=== PATIENT | female | born 1950 | race Caucasian/White ===

== ENCOUNTER 2020-09-22 22:52 | Inpatient (IN) | payer OTHER ==
[2020-09-23 01:19] LABS: VENOUS BASE EXCESS 2.9 mmol/L (-2-2); VENOUS O2 SATURATION 40.9 % (70-80); VENOUS PCO2 49.9 mmHg (38-52); VENOUS PH 7.381 (7.310-7.410)
[2020-09-23 01:20] LABS: BASO % 0.5 % (0-2.0); EOS % 1.8 % (0-4.5); HEMATOCRIT 36.8 % (32.4-45.2); HEMOGLOBIN 12.3 GM/dL (10.7-15.3); LYMPH % 45.1 % (8-40); MCH 29.8 pg (25.7-33.7); MCHC 33.5 g/dl (32.0-36.0); MEAN PLT VOLUME 8.3 fl (7.5-11.1); MONO % 10.8 % (3.8-10.2); NEUT % 41.8 % (42.8-82.8); PLATELET COUNT 297 10^3/uL (134-434); RBC 4.14 M/mm3 (3.60-5.2); RDW 15.3 % (11.6-15.6); WHITE BLOOD COUNT 4.9 K/mm3 (4.0-10.0)
[2020-09-23 01:22] LABS: EPI CELLS >36 /uL (0-25.1); HYALINE CASTS 26 /uL (0-3.1); PH,URINE 5.5 (5.0-8.0); URINE APPEARANCE TURBID; URINE BACTERIA 1869 /uL (0-1359); URINE BILIRUBIN 2+ (NEGATIVE); URINE COLOR DK YELLOW; URINE GLUCOSE (UA) NEGATIVE (NEGATIVE); URINE KETONE TRACE (NEGATIVE); URINE LEUK ESTERASE 2+ (NEGATIVE); URINE NITRITE NEGATIVE (NEGATIVE); URINE PROTEIN 1+ (NEGATIVE); URINE RBC 17 /uL (0-23.9); URINE WBC 487 /uL (0-25.8)
[2020-09-23 01:31] LABS: INR 1.1 (0.83-1.09); PROTHROMBIN TIME (PATIENT) 13.5 SEC (9.7-13.0)
[2020-09-23] MEDS ORDERED: CEFTRIAXONE 1 GM in DEXTROSE 5%-WATER - 100 ML IVPB ONE (01:32)
[2020-09-23 01:33] LABS: ACTIVATED PTT 30.5 SECONDS (25.2-36.5)
[2020-09-23 01:45] LABS: CHLORIDE 107 mmol/L (98-107); SODIUM 144 mmol/L (136-145)
[2020-09-23 01:47] LABS: ALBUMIN 3.7 g/dl (3.4-5.0); ANION GAP 8 MMOL/L (8-16); BLOOD UREA NITROGEN 16.5 mg/dL (7-18); CALCIUM 9.5 mg/dL (8.5-10.1); CO2 28 mmol/L (21-32)
[2020-09-23] MEDS ORDERED: CEFTRIAXONE 1 GM/50 ML BAG ONE (01:50)
[2020-09-23 01:51] LABS: CREATININE 0.8 mg/dL (0.55-1.3); SGOT/AST 18 U/L (15-37); SGPT/ALT 15 U/L (13-61)
[2020-09-23 01:53] LABS: BILIRUBIN,TOTAL 0.4 mg/dL (0.2-1); TOT PROT 6.8 g/dl (6.4-8.2)
[2020-09-23 01:54] LABS: ALK PHOS 47 U/L (45-117)
[2020-09-23 01:59] LABS: GLUCOSE,RANDOM 86 mg/dL (74-106)
[2020-09-23] MEDS ORDERED: DOCUSATE SODIUM 100 MG CAPSULE (FP) PO PRN (04:44)
[2020-09-23] MEDS: INSULIN SLIDING SCALE (NOVOLOG) 1 VIAL SQ SCH ×4 (06:32→22:25)
[2020-09-23 06:52] LABS: HEMATOCRIT 31.2 % (32.4-45.2); HEMOGLOBIN 10.8 GM/dL (10.7-15.3); MCH 30.8 pg (25.7-33.7); MCHC 34.8 g/dl (32.0-36.0); MEAN CELL VOLUME 88.5 fl (80-96); PLATELET COUNT 252 10^3/uL (134-434); RBC 3.52 M/mm3 (3.60-5.2); RDW 15.3 % (11.6-15.6)
[2020-09-23 07:08] LABS: ALBUMIN 3.2 g/dl (3.4-5.0); CALCIUM 8.7 mg/dL (8.5-10.1); MAGNESIUM 1.6 mg/dL (1.8-2.4)
[2020-09-23 07:11] LABS: TOT PROT 5.8 g/dl (6.4-8.2)
[2020-09-23 07:12] LABS: BILIRUBIN,TOTAL 0.3 mg/dL (0.2-1); CREATININE 0.7 mg/dL (0.55-1.3); PHOSPHOROUS 3.9 mg/dL (2.5-4.9)
[2020-09-23] MEDS ORDERED: PANTOPRAZOLE 20 MG TABLET PO ONE (08:31)
[2020-09-23] MEDS ORDERED: sitaGLIPtin PHOSPHATE 50 MG TABLET ONE ×2 (08:33→17:27)
[2020-09-23] MEDS ORDERED: metFORMIN HCL 500 MG TABLET (FP) ONE ×2 (08:33→17:27)
[2020-09-23] MEDS ORDERED: CLOPIDOGREL BISULFATE 75 MG TABLET (FP) ONE (08:33)
[2020-09-23] MEDS ORDERED: ENOXAPARIN NA (PORCINE) 40 MG/0.4 ML DISP.SYRIN SQ ONE (08:34)
[2020-09-23] MEDS: sitaGLIPtin PHOSPHATE 50 MG TABLET PO SCH ×2 (08:55→17:49)
[2020-09-23] MEDS: metFORMIN HCL 500 MG TABLET (FP) PO SCH ×2 (08:55→17:49)
[2020-09-23] MEDS ORDERED: POTASSIUM CHLORIDE ORAL LIQUID 20 MEQ/15 ML PO ONE (09:07)
[2020-09-23] MEDS ORDERED: KCL 10 MEQ IVPB 10 MEQ/100 ML INFUS.BAG IVPB ONE ×2 (09:08→12:23)
[2020-09-23] MEDS ORDERED: MAGNESIUM OXIDE 400 MG TABLET (FP) PO ONE (09:10)
[2020-09-23] MEDS: KCL 10 MEQ IVPB 10 MEQ/100 ML INFUS.BAG IVPB SCH ×3 (09:30→15:58)
[2020-09-23] MEDS: PANTOPRAZOLE 20 MG TABLET PO SCH (09:48)
[2020-09-23] MEDS: CLOPIDOGREL BISULFATE 75 MG TABLET (FP) PO SCH (09:48)
[2020-09-23] MEDS: ENOXAPARIN NA (PORCINE) 40 MG/0.4 ML DISP.SYRIN SQ SCH (09:48)
[2020-09-23] MEDS ORDERED: POTASSIUM CHLORIDE ORAL LIQUID 20 MEQ/15 ML ONE (09:53)
[2020-09-23] MEDS ORDERED: MAGNESIUM OXIDE 400 MG TABLET (FP) ONE (09:53)
[2020-09-23] MEDS ORDERED: PATIENT'S OWN MEDICATION (NON-FORMULARY) (Sitagliptin Phos/Metformin Hcl [Janumet 50-1,000 PO SCH (10:00)
[2020-09-23] MEDS ORDERED: LORazepam 2 MG/ML SDV VIAL IVPUSH ONE (17:47)
[2020-09-23] MEDS ORDERED: LORazepam 2 MG/ML SDV VIAL ONE (18:29)
[2020-09-23] MEDS ORDERED: risperiDONE 0.5 MG TABLET ONE (22:15)
[2020-09-23] MEDS ORDERED: QUEtiapine FUMARATE 25 MG TABLET ONE (22:15)
[2020-09-23] MEDS ORDERED: ATORVASTATIN CA 10 MG TABLET (FP) ONE (22:15)
[2020-09-23] MEDS: ATORVASTATIN CA 10 MG TABLET (FP) PO SCH (22:16)
[2020-09-23] MEDS: QUEtiapine FUMARATE 25 MG TABLET PO SCH (22:16)
[2020-09-23] MEDS: risperiDONE 1 MG TABLET PO SCH (22:16)
[2020-09-24] MEDS: INSULIN SLIDING SCALE (NOVOLOG) 1 VIAL SQ SCH ×4 (06:02→21:26)
[2020-09-24 07:14] LABS: BASO % 0.7 % (0-2.0); EOS % 2.4 % (0-4.5); HEMATOCRIT 32.6 % (32.4-45.2); LYMPH % 51.4 % (8-40); MCH 30.2 pg (25.7-33.7); MCHC 33.7 g/dl (32.0-36.0); MEAN CELL VOLUME 89.9 fl (80-96); MEAN PLT VOLUME 8.3 fl (7.5-11.1); MONO % 9.6 % (3.8-10.2); NEUT % 35.9 % (42.8-82.8); PLATELET COUNT 245 10^3/uL (134-434); RBC 3.63 M/mm3 (3.60-5.2); RDW 15.2 % (11.6-15.6); WHITE BLOOD COUNT 3.8 K/mm3 (4.0-10.0)
[2020-09-24 07:38] LABS: CALCIUM 8.6 mg/dL (8.5-10.1)
[2020-09-24 07:39] LABS: ALBUMIN 2.8 g/dl (3.4-5.0); BLOOD UREA NITROGEN 12.2 mg/dL (7-18); MAGNESIUM 1.5 mg/dL (1.8-2.4)
[2020-09-24 07:41] LABS: CREATININE 0.6 mg/dL (0.55-1.3)
[2020-09-24 07:43] LABS: BILIRUBIN,TOTAL 0.4 mg/dL (0.2-1); TOT PROT 5.5 g/dl (6.4-8.2)
[2020-09-24] MEDS ORDERED: MAGNESIUM SULF 50% (8.12 MEQ/2 ML-1 GM VIAL) IVPB ONE (07:58)
[2020-09-24] MEDS ORDERED: PANTOPRAZOLE 20 MG TABLET PO ONE (09:42)
[2020-09-24] MEDS ORDERED: CEFTRIAXONE 1 GM/50 ML BAG ONE (09:42)
[2020-09-24] MEDS ORDERED: ENOXAPARIN NA (PORCINE) 40 MG/0.4 ML DISP.SYRIN SQ ONE (09:42)
[2020-09-24] MEDS ORDERED: CLOPIDOGREL BISULFATE 75 MG TABLET (FP) ONE (09:42)
[2020-09-24] MEDS ORDERED: MAGNESIUM 1GM/D5W - 1 GM/100 ML IVPB IVPB ONE (09:43)
[2020-09-24] MEDS ORDERED: CEFTRIAXONE 1 GM in DEXTROSE 5%-WATER - 50 ML IVPB SCH (10:00)
[2020-09-24] MEDS: ENOXAPARIN NA (PORCINE) 40 MG/0.4 ML DISP.SYRIN SQ SCH (10:56)
[2020-09-24] MEDS: PANTOPRAZOLE 20 MG TABLET PO SCH (11:54)
[2020-09-24] MEDS: CLOPIDOGREL BISULFATE 75 MG TABLET (FP) PO SCH (11:54)
[2020-09-24] MEDS: risperiDONE 1 MG TABLET PO SCH ×2 (11:54→21:12)
[2020-09-24] MEDS ORDERED: MAGNESIUM OXIDE 400 MG TABLET (FP) PO ONE (12:28)
[2020-09-24 17:29] VITALS: BMI 25.7
[2020-09-24] MEDS: QUEtiapine FUMARATE 25 MG TABLET PO SCH (21:12)
[2020-09-24] MEDS: ATORVASTATIN CA 10 MG TABLET (FP) PO SCH (21:12)
[2020-09-25] MEDS: INSULIN SLIDING SCALE (NOVOLOG) 1 VIAL SQ SCH ×4 (06:13→21:11)
[2020-09-25] MEDS: ENOXAPARIN NA (PORCINE) 40 MG/0.4 ML DISP.SYRIN SQ SCH (09:12)
[2020-09-25] MEDS: CEFUROXIME AXETIL 500 MG TABLET PO SCH ×2 (09:12→21:09)
[2020-09-25] MEDS: risperiDONE 1 MG TABLET PO SCH ×2 (09:13→21:09)
[2020-09-25] MEDS: CLOPIDOGREL BISULFATE 75 MG TABLET (FP) PO SCH (09:13)
[2020-09-25] MEDS: PANTOPRAZOLE 20 MG TABLET PO SCH (09:13)
[2020-09-25 10:21] LABS: BASO % 0.7 % (0-2.0); EOS % 2.4 % (0-4.5); HEMATOCRIT 32.9 % (32.4-45.2); HEMOGLOBIN 11.1 GM/dL (10.7-15.3); LYMPH % 37.7 % (8-40); MCH 29.7 pg (25.7-33.7); MCHC 33.6 g/dl (32.0-36.0); MEAN CELL VOLUME 88.3 fl (80-96); MEAN PLT VOLUME 8.3 fl (7.5-11.1); MONO % 8.3 % (3.8-10.2); NEUT % 50.9 % (42.8-82.8); PLATELET COUNT 279 10^3/uL (134-434); RBC 3.73 M/mm3 (3.60-5.2); RDW 14.7 % (11.6-15.6); WHITE BLOOD COUNT 3.1 K/mm3 (4.0-10.0)
[2020-09-25 10:27] LABS: BLOOD UREA NITROGEN 10.6 mg/dL (7-18); CALCIUM 8.7 mg/dL (8.5-10.1); MAGNESIUM 1.6 mg/dL (1.8-2.4)
[2020-09-25 10:29] LABS: CREATININE 0.6 mg/dL (0.55-1.3)
[2020-09-25 10:30] LABS: BILIRUBIN,TOTAL 0.4 mg/dL (0.2-1); TOT PROT 5.6 g/dl (6.4-8.2)
[2020-09-25] MEDS: MEMANTINE HCL 5 MG TABLET (UD) PO SCH ×2 (14:14→21:09)
[2020-09-25] MEDS ORDERED: MAGNESIUM OXIDE 400 MG TABLET (FP) PO ONE (15:43)
[2020-09-25] MEDS ORDERED: PT OWN MED DRAWER 7, Y5N ONE (20:18)
[2020-09-25] MEDS: ATORVASTATIN CA 10 MG TABLET (FP) PO SCH (21:09)
[2020-09-25] MEDS: QUEtiapine FUMARATE 25 MG TABLET PO SCH (21:09)
[2020-09-26] MEDS: INSULIN SLIDING SCALE (NOVOLOG) 1 VIAL SQ SCH ×4 (06:08→21:03)
[2020-09-26] MEDS ORDERED: PT OWN MED DRAWER 7, Y5N ONE (10:13)
[2020-09-26] MEDS: ENOXAPARIN NA (PORCINE) 40 MG/0.4 ML DISP.SYRIN SQ SCH (10:20)
[2020-09-26] MEDS: PANTOPRAZOLE 20 MG TABLET PO SCH (10:20)
[2020-09-26] MEDS: risperiDONE 1 MG TABLET PO SCH ×2 (10:20→21:01)
[2020-09-26] MEDS: MEMANTINE HCL 5 MG TABLET (UD) PO SCH ×2 (10:20→21:01)
[2020-09-26] MEDS: CEFUROXIME AXETIL 500 MG TABLET PO SCH ×2 (10:20→21:00)
[2020-09-26] MEDS: CLOPIDOGREL BISULFATE 75 MG TABLET (FP) PO SCH (10:20)
[2020-09-26] MEDS: QUEtiapine FUMARATE 25 MG TABLET PO SCH (21:01)
[2020-09-26] MEDS: ATORVASTATIN CA 10 MG TABLET (FP) PO SCH (21:01)
[2020-09-27] MEDS: INSULIN SLIDING SCALE (NOVOLOG) 1 VIAL SQ SCH ×4 (06:40→21:13)
[2020-09-27 08:19] LABS: BASO % 0.7 % (0-2.0); EOS % 2.4 % (0-4.5); HEMATOCRIT 32.2 % (32.4-45.2); LYMPH % 44.7 % (8-40); MCHC 34.1 g/dl (32.0-36.0); MEAN CELL VOLUME 87.9 fl (80-96); MONO % 7.7 % (3.8-10.2); NEUT % 44.5 % (42.8-82.8); PLATELET COUNT 248 10^3/uL (134-434); RBC 3.66 M/mm3 (3.60-5.2); RDW 15.1 % (11.6-15.6); WHITE BLOOD COUNT 3.4 K/mm3 (4.0-10.0)
[2020-09-27 08:42] LABS: CALCIUM 8.4 mg/dL (8.5-10.1)
[2020-09-27 08:43] LABS: ALBUMIN 2.8 g/dl (3.4-5.0); BLOOD UREA NITROGEN 10.6 mg/dL (7-18); MAGNESIUM 1.7 mg/dL (1.8-2.4)
[2020-09-27 08:45] LABS: CREATININE 0.6 mg/dL (0.55-1.3)
[2020-09-27 08:46] LABS: BILIRUBIN,TOTAL 0.5 mg/dL (0.2-1)
[2020-09-27 08:47] LABS: TOT PROT 5.6 g/dl (6.4-8.2)
[2020-09-27] MEDS ORDERED: PT OWN MED DRAWER 7, Y5N ONE ×3 (10:03→20:51)
[2020-09-27] MEDS: PANTOPRAZOLE 20 MG TABLET PO SCH (10:06)
[2020-09-27] MEDS: risperiDONE 1 MG TABLET PO SCH ×2 (10:06→21:09)
[2020-09-27] MEDS: CLOPIDOGREL BISULFATE 75 MG TABLET (FP) PO SCH (10:06)
[2020-09-27] MEDS: MEMANTINE HCL 5 MG TABLET (UD) PO SCH ×2 (10:06→21:14)
[2020-09-27] MEDS: ENOXAPARIN NA (PORCINE) 40 MG/0.4 ML DISP.SYRIN SQ SCH (10:07)
[2020-09-27] MEDS: CEFUROXIME AXETIL 500 MG TABLET PO SCH ×2 (10:07→21:14)
[2020-09-27] MEDS: ATORVASTATIN CA 10 MG TABLET (FP) PO SCH (21:09)
[2020-09-27] MEDS: QUEtiapine FUMARATE 25 MG TABLET PO SCH (21:09)
[2020-09-28] MEDS: INSULIN SLIDING SCALE (NOVOLOG) 1 VIAL SQ SCH ×4 (06:18→21:16)
[2020-09-28] MEDS ORDERED: PT OWN MED DRAWER 7, Y5N ONE (09:29)
[2020-09-28] MEDS: CLOPIDOGREL BISULFATE 75 MG TABLET (FP) PO SCH (09:31)
[2020-09-28] MEDS: risperiDONE 1 MG TABLET PO SCH (09:31)
[2020-09-28] MEDS: PANTOPRAZOLE 20 MG TABLET PO SCH (09:32)
[2020-09-28] MEDS: MEMANTINE HCL 5 MG TABLET (UD) PO SCH ×2 (09:32→21:15)
[2020-09-28] MEDS: ENOXAPARIN NA (PORCINE) 40 MG/0.4 ML DISP.SYRIN SQ SCH (09:32)
[2020-09-28] MEDS ORDERED: MAGNESIUM OXIDE 400 MG TABLET (FP) PO ONE (09:42)
[2020-09-28] MEDS ORDERED: POTASSIUM CHLORIDE TABS 20 MEQ TABLET.ER (FP) PO SCH (09:45)
[2020-09-28 10:59] LABS: BASO % 0.7 % (0-2.0); EOS % 1.9 % (0-4.5); HEMATOCRIT 32.9 % (32.4-45.2); LYMPH % 33.4 % (8-40); MCH 29.8 pg (25.7-33.7); MCHC 33.3 g/dl (32.0-36.0); MEAN CELL VOLUME 89.5 fl (80-96); MEAN PLT VOLUME 8.4 fl (7.5-11.1); MONO % 4.9 % (3.8-10.2); NEUT % 59.1 % (42.8-82.8); PLATELET COUNT 260 10^3/uL (134-434); RBC 3.68 M/mm3 (3.60-5.2); RDW 15.1 % (11.6-15.6); WHITE BLOOD COUNT 3.8 K/mm3 (4.0-10.0)
[2020-09-28 11:22] LABS: CALCIUM 8.3 mg/dL (8.5-10.1)
[2020-09-28 11:23] LABS: BLOOD UREA NITROGEN 12.5 mg/dL (7-18)
[2020-09-28 11:26] LABS: CREATININE 0.7 mg/dL (0.55-1.3)
[2020-09-28] MEDS ORDERED: ACETAMINOPHEN 325 MG TABLET (FP) PO PRN (14:43)
[2020-09-28] MEDS ORDERED: SODIUM PHOSPHATE/NA BIPHOS 133 ML ENEMA PR ONE (20:16)
[2020-09-28] MEDS: ATORVASTATIN CA 10 MG TABLET (FP) PO SCH (21:15)
[2020-09-28] MEDS: OLANZapine 2.5 MG TABLET PO SCH (21:15)
[2020-09-29] MEDS: INSULIN SLIDING SCALE (NOVOLOG) 1 VIAL SQ SCH ×4 (06:07→21:23)
[2020-09-29 09:05] LABS: BASO % 0.8 % (0-2.0); EOS % 2.3 % (0-4.5); HEMATOCRIT 31.8 % (32.4-45.2); HEMOGLOBIN 10.6 GM/dL (10.7-15.3); LYMPH % 39.6 % (8-40); MCH 29.7 pg (25.7-33.7); MCHC 33.3 g/dl (32.0-36.0); MEAN CELL VOLUME 89.2 fl (80-96); MEAN PLT VOLUME 8.4 fl (7.5-11.1); MONO % 8.9 % (3.8-10.2); NEUT % 48.4 % (42.8-82.8); PLATELET COUNT 262 10^3/uL (134-434); RBC 3.56 M/mm3 (3.60-5.2); RDW 14.8 % (11.6-15.6); WHITE BLOOD COUNT 3.7 K/mm3 (4.0-10.0)
[2020-09-29 09:24] LABS: CALCIUM 8.3 mg/dL (8.5-10.1)
[2020-09-29 09:25] LABS: BLOOD UREA NITROGEN 10.3 mg/dL (7-18); MAGNESIUM 1.7 mg/dL (1.8-2.4)
[2020-09-29 09:30] LABS: BILIRUBIN,TOTAL 0.3 mg/dL (0.2-1); TOT PROT 5.5 g/dl (6.4-8.2)
[2020-09-29 09:33] LABS: ALBUMIN 2.8 g/dl (3.4-5.0); CREATININE 0.5 mg/dL (0.55-1.3)
[2020-09-29] MEDS ORDERED: PT OWN MED DRAWER 7, Y5N ONE ×2 (09:48→21:21)
[2020-09-29] MEDS: MEMANTINE HCL 5 MG TABLET (UD) PO SCH ×2 (09:56→21:24)
[2020-09-29] MEDS: PANTOPRAZOLE 20 MG TABLET PO SCH (09:56)
[2020-09-29] MEDS: ENOXAPARIN NA (PORCINE) 40 MG/0.4 ML DISP.SYRIN SQ SCH (09:56)
[2020-09-29] MEDS: CLOPIDOGREL BISULFATE 75 MG TABLET (FP) PO SCH (09:56)
[2020-09-29] MEDS: OLANZapine 2.5 MG TABLET PO SCH (21:24)
[2020-09-29] MEDS: ATORVASTATIN CA 10 MG TABLET (FP) PO SCH (21:25)
[2020-09-30] MEDS: INSULIN SLIDING SCALE (NOVOLOG) 1 VIAL SQ SCH ×4 (07:16→21:26)
[2020-09-30] MEDS ORDERED: PT OWN MED DRAWER 7, Y5N ONE ×2 (08:49→20:51)
[2020-09-30] MEDS: MEMANTINE HCL 5 MG TABLET (UD) PO SCH ×2 (08:59→21:20)
[2020-09-30] MEDS: PANTOPRAZOLE 20 MG TABLET PO SCH (08:59)
[2020-09-30] MEDS: CLOPIDOGREL BISULFATE 75 MG TABLET (FP) PO SCH (08:59)
[2020-09-30 10:26] LABS: HOMOCYSTINE-PLASMA OR SERUM 11.4 umol/L; METHYLMALONIC ACID- 104
[2020-09-30] MEDS: OLANZapine 2.5 MG TABLET PO SCH (21:20)
[2020-09-30] MEDS: ATORVASTATIN CA 10 MG TABLET (FP) PO SCH (21:20)
[2020-10-01] MEDS: INSULIN SLIDING SCALE (NOVOLOG) 1 VIAL SQ SCH ×3 (06:10→16:37)
[2020-10-01] MEDS ORDERED: PT OWN MED DRAWER 7, Y5N ONE (08:52)
[2020-10-01] MEDS: CLOPIDOGREL BISULFATE 75 MG TABLET (FP) PO SCH (09:10)
[2020-10-01] MEDS: PANTOPRAZOLE 20 MG TABLET PO SCH (09:10)
[2020-10-01] MEDS: MEMANTINE HCL 5 MG TABLET (UD) PO SCH (09:10)
[2020-10-01] MEDS ORDERED: LORazepam 1 MG TABLET PO ONE (13:30)
[2020-10-01] MEDS: LORazepam 1 MG TABLET PO ONE ×2 (14:59→16:00)
[2020-10-01 18:36] VITALS: BP 113/90; PULSE 82; TEMP 98
== END 2020-10-01 18:44 | DRG 884 ==
LOC: JER 22:52 → JERBED 09-23 03:54 → J8W 09-24 16:30
PROVIDERS: ADMIT Internal Medicine; ATTEND Nurse Practitioner Acute Care
DX: F03.91 Unspecified dementia, unspecified severity, with behavioral disturbance (principal); G93.41 Metabolic encephalopathy; N39.0 Urinary tract infection, site not specified; R62.7 Adult failure to thrive; Z68.25 Body mass index [BMI] 25.0-25.9, adult; E11.9 Type 2 diabetes mellitus without complications; I10 Essential (primary) hypertension; E78.5 Hyperlipidemia, unspecified; I25.10 Atherosclerotic heart disease of native coronary artery without angina pectoris; R42 Dizziness and giddiness
CPT/HCPCS: 36415; 70450-TC; 71045-TC-FY; 80048; 80053; 81003; 82136; 82550; 82607; 82746; 82803; 82962; 83036; 83605; 83735; 83918; 84100; 84436; 84443; 84484; 85025; 85027; 85610; 85730; 86593; 86780; 87040; 87086; 93005; 93010; 97116-GP; 97161-GP; 99285-25; C9803; J2794; U0003; U0005